=== PATIENT | male | born 1935 | race Caucasian/White ===

== ENCOUNTER → 2019-07-15 | Outpatient (CLI) | payer OTHER | LOC: SJCVCIMAG 07:34 | DX: I45.10 Unspecified right bundle-branch block (principal); I35.1 Nonrheumatic aortic (valve) insufficiency; R94.31 Abnormal electrocardiogram [ECG] [EKG]; I25.810 Atherosclerosis of coronary artery bypass graft(s) without angina pectoris; I25.5 Ischemic cardiomyopathy; I10 Essential (primary) hypertension; E78.5 Hyperlipidemia, unspecified; I65.23 Occlusion and stenosis of bilateral carotid arteries; Z95.2 Presence of prosthetic heart valve; Z98.890 Other specified postprocedural states ==

== ENCOUNTER → 2020-07-10 | Outpatient (CLI) | payer OTHER | LOC: SJCVCIMAG 06-24 09:32 | PROVIDERS: ATTEND Internal Medicine Cardiovascular Disease | DX: I65.23 Occlusion and stenosis of bilateral carotid arteries (principal); I25.810 Atherosclerosis of coronary artery bypass graft(s) without angina pectoris; I10 Essential (primary) hypertension; E78.00 Pure hypercholesterolemia, unspecified; E11.9 Type 2 diabetes mellitus without complications; I42.9 Cardiomyopathy, unspecified; E78.5 Hyperlipidemia, unspecified; Z95.2 Presence of prosthetic heart valve; Z82.49 Family history of ischemic heart disease and other diseases of the circulatory system; Z79.82 Long term (current) use of aspirin; Z79.899 Other long term (current) drug therapy ==

== ENCOUNTER → 2020-10-27 | Outpatient (CLI) | payer OTHER | LOC: SJCVC 10:20 | PROVIDERS: ATTEND Internal Medicine Cardiovascular Disease | DX: I25.10 Atherosclerotic heart disease of native coronary artery without angina pectoris (principal); I42.9 Cardiomyopathy, unspecified; K21.9 Gastro-esophageal reflux disease without esophagitis; E11.9 Type 2 diabetes mellitus without complications; I65.23 Occlusion and stenosis of bilateral carotid arteries; E78.5 Hyperlipidemia, unspecified; N40.0 Benign prostatic hyperplasia without lower urinary tract symptoms; E55.9 Vitamin D deficiency, unspecified; I10 Essential (primary) hypertension; Z95.2 Presence of prosthetic heart valve; Z79.82 Long term (current) use of aspirin; Z79.84 Long term (current) use of oral hypoglycemic drugs; Z79.899 Other long term (current) drug therapy ==

== ENCOUNTER 2020-11-16 21:47 | Emergency (ER) | payer MEDICARE ==
[~2020-11-16] VITALS: Ht 177.8 cm; Wt 72.6 kg
[2020-11-16 22:34] LABS: ABSOLUTE NEUTROPHILS 5.5 thou/uL (1.4-8.2); BASOPHILS 0.3 % (0.0-2.0); EOSINOPHILS 1.8 % (0.0-3.0); HEMATOCRIT 30.5 % (42.0-52.0); HEMOGLOBIN 10.3 gm/dL (14.0-18.0); LYMPHOCYTES 21.8 % (24.0-44.0); MCH 30.3 pg (26.0-34.0); MCHC 33.7 g/dL (28.0-37.0); MCV 89.7 fL (80.0-100.0); MONOCYTES 5.1 % (1.0-8.0); PLATELET COUNT 210 thou/uL (150-400); RDW 16.6 % (10.5-14.5); WBC 7.7 thou/uL (4.0-11.0)
[2020-11-16 22:50] LABS: ANION GAP 14 mmol/L (7-16); BUN 43 mg/dL (7-18); CALCIUM 8.9 mg/dL (8.5-10.1); CHLORIDE 107 mmol/L (98-107); CO2 20 mmol/L (21-32); CREATININE 1.9 mg/dL (0.7-1.3); GLUCOSE 198 mg/dL (74-106); POTASSIUM 3.7 mmol/L (3.5-5.1); SODIUM 141 mmol/L (136-145)
[2020-11-16 23:01] LABS: ALBUMIN 3.5 g/dL (3.4-5.0); DIRECT BILIRUBIN 0.1 mg/dL (<0.1-0.2); SGOT 14 U/L (15-37); SGPT 18 U/L (16-63); TOTAL BILIRUBIN 0.4 mg/dL (0.2-1.0); TOTAL PROTEIN 6.9 g/dL (6.4-8.2); TROPONIN-I <0.06 ng/mL (<0.06)
[2020-11-17] MEDS ORDERED: ASA81BEC PO (00:17)
[2020-11-17] MEDS ORDERED: CALCIUM 500+D1 EAC2 PO (00:19)
[2020-11-17] MEDS ORDERED: CLOPIDOGREL75 MG PO (00:19)
[2020-11-17] MEDS ORDERED: FERROUS SULFAT325 MG PO (00:20)
[2020-11-17] MEDS ORDERED: FINASTERIDE5 MG PO (00:21)
[2020-11-17] MEDS ORDERED: GLIPIZIDE 10 MG10 MG PO (00:22)
[2020-11-17] MEDS ORDERED: LOSARTAN POTASS50 MG PO (00:22)
[2020-11-17] MEDS ORDERED: METFORMIN HCL500 M3 PO (00:24)
[2020-11-17] MEDS ORDERED: METOPROLOL SUCC25 M1 PO (00:25)
[2020-11-17] MEDS ORDERED: OMEPRAZOLE40 MG PO (00:25)
[2020-11-17] MEDS ORDERED: TORSEMIDE10 MG PO (00:26)
[2020-11-17] MEDS ORDERED: SPIRONOLACTONE25 MG PO (00:27)
[2020-11-17] MEDS ORDERED: FLOMAX0.4 MG PO (00:27)
[2020-11-17] MEDS ORDERED: ROSUVASTATIN CA20 MG PO (00:30)
[2020-11-17 01:34] LABS: URINE BILIRUBIN NEGATIVE (Negative); URINE BLOOD NEGATIVE (Negative); URINE CLARITY CLEAR; URINE COLOR YELLOW; URINE GLUCOSE-RANDOM* NEGATIVE (Negative); URINE KETONES NEGATIVE (Negative); URINE LEUKOCYTES-REFLEX TRACE (Negative); URINE NITRITE-REFLEX NEGATIVE (Negative); URINE PROTEIN (DIPSTICK) NEGATIVE (Negative); URINE UROBILINOGEN 0.2 E.U./dl (0.2-1.0)
[2020-11-17 03:18] VITALS: BP 142/62
--- NOTE | 2020-11-17 08:57 | EKG ---
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 : 1935 Requested By: Carmen Lantigua Order Number: [id number] MD: Antonio Wyatt Measurements Intervals [place] Rate: 76 P: 0 PA: 200 QRS: 80 QRSD: 174 T: 2 QT: 447 QTc: 503 Interpretive Statements Sinus rhythm Paired ventricular premature complexes Right bundle branch block Borderline ST depression, lateral leads No previous ECG available for comparison Electronically Signed On 11-17-2020 8:56:59 CDT by Antonio Wyatt [email or web address] <ELECTRONICALLY SIGNED> By: Antonio Wyatt MD, [facility] 11/17/20 0856 [id number] 2153 Antonio Wyatt MD, FACC /EPI
== END 2020-11-17 03:30 | disposition home or self-care (01) ==
LOC: ER 21:47
PROVIDERS: Emergency Medicine
DX: R55 Syncope and collapse (principal); R06.00 Dyspnea, unspecified; Z79.82 Long term (current) use of aspirin; Z79.810 Long term (current) use of selective estrogen receptor modulators (SERMs); Z79.899 Other long term (current) drug therapy

== ENCOUNTER → 2020-11-17 | Outpatient (CLI) | payer MEDICARE ==
[~2020-11-17] MED LIST: ASA81BEC PO; CALCIUM 500+D1 EAC2 PO; CLOPIDOGREL75 MG PO; FERROUS SULFAT325 MG PO; FINASTERIDE5 MG PO; FLOMAX0.4 MG PO; GLIPIZIDE 10 MG10 MG PO; LOSARTAN POTASS50 MG PO; METFORMIN HCL500 M3 PO; METOPROLOL SUCC25 M1 PO; OMEPRAZOLE40 MG PO; ROSUVASTATIN CA20 MG PO; SPIRONOLACTONE25 MG PO; TORSEMIDE10 MG PO
== END ==
LOC: SJCVC 15:08
PROVIDERS: ATTEND Internal Medicine Cardiovascular Disease
DX: R94.31 Abnormal electrocardiogram [ECG] [EKG] (principal); I49.3 Ventricular premature depolarization; I45.10 Unspecified right bundle-branch block; I25.10 Atherosclerotic heart disease of native coronary artery without angina pectoris; I25.5 Ischemic cardiomyopathy; E11.9 Type 2 diabetes mellitus without complications; I65.23 Occlusion and stenosis of bilateral carotid arteries; E78.00 Pure hypercholesterolemia, unspecified; I11.0 Hypertensive heart disease with heart failure; I50.23 Acute on chronic systolic (congestive) heart failure; R55 Syncope and collapse; E55.9 Vitamin D deficiency, unspecified; E53.8 Deficiency of other specified B group vitamins; Z79.82 Long term (current) use of aspirin; Z79.84 Long term (current) use of oral hypoglycemic drugs; Z79.899 Other long term (current) drug therapy; Z72.89 Other problems related to lifestyle

== ENCOUNTER 2020-12-08 21:22 | Inpatient (IN) | payer MEDICARE ==
[~2020-12-08] VITALS: Ht 182.9 cm; Wt 87.1 kg
[2020-12-08 21:31] VITALS: BP 144/43
[2020-12-08 23:07] LABS: ABSOLUTE NEUTROPHILS 10.9 thou/uL (1.4-8.2); BASOPHILS 0.2 % (0.0-2.0); EOSINOPHILS 0.8 % (0.0-3.0); HEMATOCRIT 33.3 % (42.0-52.0); HEMOGLOBIN 11.1 gm/dL (14.0-18.0); MCH 29.7 pg (26.0-34.0); MCHC 33.2 g/dL (28.0-37.0); MCV 89.5 fL (80.0-100.0); MONOCYTES 5.5 % (1.0-8.0); PLATELET COUNT 210 thou/uL (150-400); POLYS 84.5 % (36.0-66.0); RBC 3.72 mil/uL (4.50-6.00); RDW 17.2 % (10.5-14.5); WBC 12.9 thou/uL (4.0-11.0)
[2020-12-08 23:10] LABS: ANION GAP 10 mmol/L (7-16); BUN 51 mg/dL (7-18); CALCIUM 9.5 mg/dL (8.5-10.1); CHLORIDE 105 mmol/L (98-107); CO2 24 mmol/L (21-32); CREATININE 1.8 mg/dL (0.7-1.3); GLUCOSE 68 mg/dL (74-106); POTASSIUM 3.7 mmol/L (3.5-5.1); SODIUM 139 mmol/L (136-145)
[2020-12-08 23:20] LABS: ALBUMIN 3.8 g/dL (3.4-5.0); SGOT 23 U/L (15-37); SGPT 28 U/L (16-63); TOTAL BILIRUBIN 0.6 mg/dL (0.2-1.0); TROPONIN-I <0.06 ng/mL (<0.06)
[2020-12-08] MEDS ORDERED: ALPRAZOLAM 0.0.25 M1 PO (23:36)
[2020-12-09 05:45] LABS: HEMATOCRIT 29.1 % (42.0-52.0); HEMOGLOBIN 10.1 gm/dL (14.0-18.0); MCH 30.8 pg (26.0-34.0); MCHC 34.7 g/dL (28.0-37.0); MCV 88.6 fL (80.0-100.0); RBC 3.29 mil/uL (4.50-6.00); RDW 17.1 % (10.5-14.5); WBC 6.9 thou/uL (4.0-11.0)
[2020-12-09 05:55] LABS: CALCIUM 8.8 mg/dL (8.5-10.1); CREATININE 1.7 mg/dL (0.7-1.3); POTASSIUM 3.9 mmol/L (3.5-5.1)
[2020-12-09 06:23] LABS: URINE BILIRUBIN NEGATIVE (Negative); URINE BLOOD NEGATIVE (Negative); URINE CLARITY CLEAR; URINE COLOR YELLOW; URINE GLUCOSE-RANDOM* NEGATIVE (Negative); URINE KETONES NEGATIVE (Negative); URINE LEUKOCYTES-REFLEX NEGATIVE (Negative); URINE NITRITE-REFLEX NEGATIVE (Negative); URINE PROTEIN (DIPSTICK) NEGATIVE (Negative); URINE SPECIFIC GRAVITY 1.015 (1.005-1.035); URINE UROBILINOGEN 0.2 E.U./dl (0.2-1.0)
--- NOTE | 2020-12-09 07:16 | EKG ---
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 : 1935 Requested By: Wilder Mazariegos Order Number: [id number] MD: Mack Hennessy Measurements Intervals [place] Rate: 81 P: 13 VT: 194 QRS: 65 QRSD: 169 T: -8 QT: 440 QTc: 511 Interpretive Statements Sinus rhythm Ventricular trigeminy Right bundle branch block Compared to ECG 11/16/2020 21:53:36 ST (T wave) deviation no longer present Electronically Signed On 12-09-2020 7:15:52 CDT by Mack Hennessy [email or web address] <ELECTRONICALLY SIGNED> By: Mack Hennessy MD, [facility] 12/09/2015 25 25 Mack Hennessy MD, [facility] /EPI
--- NOTE | 2020-12-09 09:46 | NUR ---
85-year-old male with a history of CAD s/p stent, aortic valve insufficiency s/p AVR, diabetes type II, hypertension, hyperlipidemia, and anemia who presents to the ED on 12-09-20 from home with near syncope. Daughter who was at bedside in the ED. The patient was admitted with Recurrent Syncope and palpitations s/p Holter monitor for 2 week. Per ED record patient is listed as vaccinated in July with both vaccines of [employer]. The patient is a current patient of Dr. Pritchard. The ED also reports the patient to be A&O x4. The patient has listed Rosa Jaeger at [phone] and daughter Jo Faye at [phone] as next of kin and contact/s. It is noted that patient lives at home with his spouse. Patient to be assessed by cardiology and once plan of care and discharge needs are identified, CM will follow for discharge needs.
[2020-12-09 10:56] VITALS: BP 130/57
--- NOTE | 2020-12-09 14:18 | 2DMMODE ---
[facility] [place] [address] 2 D/M-MODE ECHOCARDIOGRAM Name: BETTY LEAL Room #: 170-16 ADM IN M.R.#: [id number] Admission: 12/08/20 Attend Phys: Alf Bowden MD Discharge: Date of : 35 Report #: [id number] THIS REPORT FOR: cc: Zuleyka Burns MD, Suzanne MD Santiago, Patrick MD [facility] ~ APPROVED REPORT Study performed: 12/09/2020 13:25:09 EXAM: Comprehensive 2D, Doppler, and color-flow Echocardiogram Patient Location: ER Status: routine BSA: 2.04 HR: 62 bpm BP: 130/57 mmHg Rhythm: RBBB Other Information Study Quality: Adequate Indications Possible syncope. RBBB. Hx: CAD, PCI, ISCM, AV replacement (2002). 2D Dimensions RVDd: 42.06 mm IVSd: 10.46 (7-11mm) LVDd: 56.44 mm PWd: 10.22 (7-11mm) Ascending Ao: 36.97 (22-36mm) LVDs: 43.03 (25-40mm) Left Atrium: 39.02 (27-40mm) Aortic Root: 36.18 mm Volumes Left Atrial Volume (Systole) Single Plane 4CH: 42.89 mL Single Plane 2CH: 52.29 mL LA ESV Index: 25.00 mL/m2 Aortic Valve AoV Peak Jim.: 3.17 m/s AO Peak Gr.: 40.16 mmHg LVOT Max P.38 mmHg AO Mean Gr.: 23.67 mmHg [facility] [address] [place] [address] 2 D/M-MODE ECHOCARDIOGRAM Name: BETTY LEAL Room #: 170-16 [facility] IN [facility].#: [id number] Admission: 12/08/20 Attend Phys: Alf Bowden MD Discharge: Date of : 35 Report #: [id number] AO V2 Mean: 2.29 m/s LVOT Max V: 0.92 m/s AO V2 VTI: 71.27 cm Mitral Valve E/A Ratio: 0.9 MV Decel. Time: 256.88 ms MV E Max Jim.: 0.54 m/s MV A Jim.: 0.60 m/s MV PHT: 74.50 ms IVRT: 83.04 ms Pulmonary Valve PV Peak Jim.: 1.02 m/s PV Peak Gr.: 4.13 mmHg Tricuspid Valve TR Peak Jim.: 1.83 m/s RAP Estimate: 5.00 mmHg TR Peak Gr.: 13.36 mmHg PA Pressure: 18.00 mmHg Left Ventricle The left ventricle is normal size. There is normal left ventricular wall thickness. Left ventricular systolic function is mildly decreased. LVEF is 45-50%. Mild diastolic dysfunction is present (impaired relaxation pattern). Right Ventricle The right ventricle is normal size. The right ventricular systolic function is normal. Atria The left atrium size is normal. The right atrium size is normal. Aortic Valve History of #25 bioprosthetic AV replacement (Peak pressure gradient 40mmHg; mean 24mmHg). Mild aortic regurgitation. Mitral Valve The mitral valve is normal in structure. There is no mitral valve regurgitation noted. No evidence of mitral valve stenosis. Tricuspid Valve The tricuspid valve is normal in structure. Trace tricuspid regurgitation. Estimated PAP is 18mmHg. Pulmonic Valve [facility] [place] [address] 2 D/M-MODE ECHOCARDIOGRAM Name: JUSTINEMILYBETTY Cooper Room #: 170-16 ADM IN M.R.#: [id number] Admission: 12/08/20 Attend Phys: Alf Bowden MD Discharge: Date of : 35 Report #: [id number] The pulmonary valve is normal in structure. Trace pulmonic regurgitation. Great Vessels The aortic root is normal in size. The ascending aorta is normal in size. IVC is normal in size and collapses >50% with inspiration. Pericardium There is no pericardial effusion. <Conclusion> Normal left ventricular size/wall thickness Mild global hypokinesis ejection fraction 45-50% Normal right ventricular size/function Normal atrial size History of #25 bioprosthetic aortic valve/with a mean gradient of 24 mmHg Mild aortic valve insufficiency Normal mitral valve structure and function Trace tricuspid valve insufficiency Pulmonary systolic pressure estimated 18 mmHg No pericardial effusion Normal aortic root size <ELECTRONICALLY SIGNED> By: Mack Hennessy MD, FACC 12/09/20 141 17 17 Mack Hennessy MD, FAC /INF
[2020-12-09 17:54] VITALS: BP 130/57
[2020-12-09 18:41] VITALS: BP 130/57
[2020-12-09 18:50] VITALS: BP 130/57
[2020-12-09 22:52] VITALS: BP 146/64
--- NOTE | 2020-12-09 23:15 | NUR ---
PT ADMITTED TO UNIT AT 2210. PT IS A/O X4 AND IS UP WITH SBA TO THE BR. VSS. AFEBRILE. BLOOD SUGAR WNL UPON INITIAL CHECK. DENIES C/O PAIN OR DISCOMFORT. ADMISSION IS COMPLETE. SR/BBB ON THE MONITOR. FALL PRECAUTIONS IN PLACE, CALL LIGHT IS WITHIN REACH. PT HAS BEEN EDUCATED ON BED CONTROLS AND USE OF THE CALL LIGHT. URINAL PLACED AT THE BEDSIDE. ALL HS MEDICATIONS AND REQUESTED ANXIETY MEDICATION GIVEN IN THE ED. WILL CONTINUE TO MONITOR.
[2020-12-10 07:33] VITALS: BP 108/54
--- NOTE | 2020-12-10 12:55 | NUR ---
ASSUMED PT CARE THIS AM. PT A&OX4, ABLE TO MAKE NEEDS KNOWN. PATIENT AMBULATORY WITH ASSIST TO THE BATHROOM. USING A URINAL WHEN NEEDED. PATIENT REPORTING NO PAIN, DOES REPORT CHRONIC NEUROPATHY. PATIENT TOOK MORNING MEDICATIONS WITHOUT ISSUE. PATIENT REMAINS ON TELE. FALL PRECAUTIONS ARE IN PLACE, CALL LIGHT WITHIN REACH. DAUGHTER AT BEDSIDE.
[2020-12-10 13:27] LABS: HEMATOCRIT 35.2 % (42.0-52.0); HEMOGLOBIN 11.8 gm/dL (14.0-18.0); MCH 30.4 pg (26.0-34.0); MCHC 33.5 g/dL (28.0-37.0); RBC 3.87 mil/uL (4.50-6.00); RDW 17.2 % (10.5-14.5); WBC 6.9 thou/uL (4.0-11.0)
[2020-12-10 13:34] LABS: CALCIUM 9.1 mg/dL (8.5-10.1); CREATININE 1.8 mg/dL (0.7-1.3); POTASSIUM 3.9 mmol/L (3.5-5.1)
[2020-12-10 16:45] VITALS: BP 113/50
[2020-12-11 01:40] VITALS: BP 112/47
[2020-12-11 01:48] VITALS: BP 109/50
[2020-12-11 01:49] VITALS: BP 82/48
--- NOTE | 2020-12-11 05:21 | NUR ---
patient aox3 confused and forgetful this shift. patient denied pain or discomfort. no episode of palpitaton or syncope this shift. bed padded d/t patient being on seizure precaution. fall precaution in place. patient in bed asleep at this time breathing regular and unlaboured.
[2020-12-11 07:20] VITALS: BP 118/63
[2020-12-11] MEDS ORDERED: PACERONE200 MG PO (09:48)
--- NOTE | 2020-12-11 12:56 | NUR ---
ASSUMED PT CARE THIS AM. PT A&OX4, ABLE TO MAKE NEEDS KNOWN. PATIENT REPORTING NO PAIN. MEDICATIONS TAKEN WITHOUT ISSUE. PATIENT USING CALL LIGHT APPROPRIATELY TO USE RESTROOM AND IS UP WITH STANDBY ASSIST. IV PATENT. PATIENT REPORTING NO NUMBNESS, OR TINGLING. PATIENT REMAINS ON TELEMETRY. FALL PRECAUTIONS ARE IN PLACE, CALL LIGHT WITHIN REACH. FAMILY MEMBER IN ROOM.
[2020-12-11] MEDS ORDERED: KEPPRA 500 MG500 M1 PO (14:15)
[2020-12-11 14:46] VITALS: BP 118/63
--- NOTE | 2020-12-18 12:12 | EEG ---
[facility] [place] [address] ELECTROENCEPHALOGRAM Name: BETTY LEAL Room #: 452-P [facility] IN M.R.#: [id number] Admission: 12/08/20 Attend Phys: Alf Bowden MD Discharge: 12/11/20 Date of : 35 Report #: [id number] THIS REPORT FOR: //name// DATE OF SERVICE: 12/10/2020 This patient is being evaluated for the possibility of seizure. EEG was done by placing the electrode by standard 10-20 system of electrode placement. Both referential and sequential montages were used for recording. Background activity in this patient's EEG is about 10 Hz and 30 microvolt. It is a symmetrical activity. The patient went to sleep that is associated with bilateral slowing and vertex sharp waves. Throughout the record, no active epileptiform activity was noticed. IMPRESSION: This patient's EEG is unremarkable. Thank you very much for this referral. <ELECTRONICALLY SIGNED> By: Yogesh Valadez MD 12/18/20 1212 0958 1028 Yogesh Valadez MD /nt
--- NOTE | 2020-12-18 12:12 | HC ---
[facility] [place] [address] CONSULTATION Name: BETTY LEAL Room #: 452-P [facility] IN M.R.#: [id number] Admission: 12/08/20 Attend Phys: Alf Bowdne MD Discharge: 12/11/20 Date of : 35 Report #: [id number] THIS REPORT FOR: cc: Zuleyka Burns MD, Suzanne MD Khosla,Yogesh Hernandez MD ~ DATE OF SERVICE: 12/09/2020 HISTORY OF PRESENT ILLNESS: This is an 85-year-old male patient who was seen by me for unusual spell this patient is having. Before I saw this patient, Dr. 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 During this spell, the patient becomes unresponsive. Some shaking has been noticed. He appeared to be unresponsive during that spell. He has not had EEG done, but cardiac workup was unremarkable. No hypoglycemia or any other etiology has been documented. REVIEW OF SYSTEMS: Indicate a heart valve replacement some time ago. He had cardiac stent put in. Does not look like he is on any anticoagulation. Cardiac workup has been done in this patient and as I understand has been unremarkable. A 14-point review of system was carried out and is positive mainly for these spells. PAST MEDICAL HISTORY: Negative for any epilepsy. FAMILY HISTORY: Negative for epilepsy. SOCIAL HISTORY: He does not abuse alcohol. PHYSICAL EXAMINATION: Indicates he is alert, responsive, oriented, able to follow simple and complex command. Cranial nerve examination and neuromuscular examinations appear unremarkable. He thinks he has some neuropathy. His reflexes are diminished, but his position sense is present. He has no edema, cyanosis or jaundice. His pulses appear to be palpable. Cardiac examinations appear unremarkable. No respiratory difficulty was noticed. Blood pressure is 136/50, respirations 18, pulse is 62. IMPRESSION: This patient may be having seizures, but the problem is that there is no good test to diagnose seizure in this patient because EEG can be negative. I discussed all of it with the patient and the daughter and I told them that sometime we may have to give therapeutic trial with medication. I discussed multiple anticonvulsants and after that the plan is: 1. We will get an MRI done if the valve is compatible. 2. We will get an EEG done. 3. If every workup is unremarkable and it can be said with certainty that [facility] [address] [place] [address] CONSULTATION Name: BETTY LEAL Cooper Room #: 452-P [facility] IN [facility].#: [id number] Admission: 12/08/20 Attend Phys: Alf Bowden MD Discharge: 12/11/20 Date of : 35 Report #: [id number] the heart is not the etiology, I will be inclined to give him a trial with Keppra. I discussed the potential side effect of Keppra with him. More than 50 minutes of time was spent taking care of this patient today and majority was spent counseling and coordinating . <ELECTRONICALLY SIGNED> By: Yogesh Valadez MD 12/18/20 1212 2047 0226 Yogesh Valadez MD /nt
== END 2020-12-11 15:34 | disposition home or self-care (01) | DRG 101 ==
LOC: ER 21:22 → EROBS 23:26 → 4W 23:26 → EROBS 12-09 08:47 → 4W 12-09 22:00
PROVIDERS: Emergency Medicine; Nurse Practitioner; Nurse Practitioner Family; ADMIT Internal Medicine; ATTEND Internal Medicine
DX: R56.9 Unspecified convulsions (principal); N17.9 Acute kidney failure, unspecified; I25.10 Atherosclerotic heart disease of native coronary artery without angina pectoris; E78.5 Hyperlipidemia, unspecified; N40.0 Benign prostatic hyperplasia without lower urinary tract symptoms; K21.9 Gastro-esophageal reflux disease without esophagitis; I35.1 Nonrheumatic aortic (valve) insufficiency; N18.30 Chronic kidney disease, stage 3 unspecified; E11.22 Type 2 diabetes mellitus with diabetic chronic kidney disease; I25.5 Ischemic cardiomyopathy; D64.9 Anemia, unspecified; I12.9 Hypertensive chronic kidney disease with stage 1 through stage 4 chronic kidney disease, or unspecified chronic kidney disease; E83.42 Hypomagnesemia; I65.29 Occlusion and stenosis of unspecified carotid artery; Z95.2 Presence of prosthetic heart valve; Z95.5 Presence of coronary angioplasty implant and graft; Z79.82 Long term (current) use of aspirin; Z79.899 Other long term (current) drug therapy
CPT/HCPCS: 10045